=== PATIENT | female | born 1995 | race Caucasian/White ===

== ENCOUNTER 2017-11-05 00:50 | Outpatient (CLI) | payer BC, MEDICAID ==
[~2017-11-05] VITALS: Ht 165.1 cm; Wt 77.3 kg
[2017-11-05 01:32] LABS: MICROSCOPIC AUTO
[2017-11-05 01:33] VITALS: BP 124/81
== END 2017-11-05 02:50 | disposition home or self-care (01) ==
LOC: LDOP 00:50
PROVIDERS: ATTEND Student in an Organized Health Care Education/Training Program
DX: O42.90 Premature rupture of membranes, unspecified as to length of time between rupture and onset of labor, unspecified weeks of gestation (principal); O26.893 Other specified pregnancy related conditions, third trimester; M54.9 Dorsalgia, unspecified; Z3A.36 36 weeks gestation of pregnancy
CPT/HCPCS: 59025; 81001; 87086; 89060; 99201; G0463; Q0114

== ENCOUNTER 2017-11-08 15:09 | Outpatient (CLI) | payer BC, MEDICAID ==
[~2017-11-08] VITALS: Ht 165.1 cm; Wt 79.1 kg
[2017-11-08 15:13] VITALS: BP 102/68
[2017-11-08] MEDS ORDERED: PREN-3 PO (15:32)
[2017-11-08] MEDS ORDERED: ACETAMINOPHEN 325 MG TABLET ONE (16:18)
[2017-11-08 16:26] LABS: MICROSCOPIC INDICATED
[2017-11-08] MEDS ORDERED: ACETAMINOPHEN 325 MG TABLET PO PRN (16:30)
== END 2017-11-08 17:33 | disposition home or self-care (01) ==
LOC: LDOP 15:09
PROVIDERS: ATTEND Student in an Organized Health Care Education/Training Program
DX: O36.8130 Decreased fetal movements, third trimester, not applicable or unspecified (principal); Z3A.00 Weeks of gestation of pregnancy not specified
CPT/HCPCS: 59025; 81001; 87081; 87086; 87880; 99211; G0463

== ENCOUNTER 2017-11-21 19:01 | Outpatient (CLI) | payer BC, MEDICAID ==
[~2017-11-21] VITALS: Ht 165.1 cm; Wt 77.2 kg
[~2017-11-21 19:01] MED LIST: PREN-3 PO
[2017-11-21 19:59] LABS: CULTURE INDICATED? YES; MICROSCOPIC INDICATED
[2017-11-21 20:32] LABS: BASOPHILS # (AUTO) 0.05 x10^3/uL (0-0.3); BASOPHILS % (AUTO) 1 % (0-1); EOSINOPHILS % (AUTO) 1 % (1-7); LYMPHOCYTES # (AUTO) 2.28 x10^3/uL (1-6.1); LYMPHOCYTES % (AUTO) 22 % (22-44); MD NO; MEAN CORPUSCULAR HEMOGLOBIN 27.7 pg (27.0-34.8); MEAN CORPUSCULAR VOLUME 83.9 fL (80-100); MEAN PLATELET VOLUME 9.6 fL (7.4-10.4); MONOCYTES # (AUTO) 0.69 x10^3/uL (0-1.4); MONOCYTES % (AUTO) 7 % (2-9); NEUTROPHILS % (AUTO) 70 % (42-75); PLATELET COUNT 256 x10^3/uL (130-400); RED CELL DISTRIBUTION WIDTH 14.5 % (9.6-15.2)
[2017-11-21 20:43] LABS: ALANINE AMINOTRANSFERASE 15 U/L (12-78); ALBUMIN 2.3 g/dL (3.4-5.0); ANION GAP 9 mmol/L (5-15); CALCIUM 8.3 mg/dL (8.5-10.1); CHLORIDE 109 mmol/L (98-107); CREATININE 0.69 mg/dL (0.55-1.02)
[2017-11-21 20:45] LABS: ALKALINE PHOSPHATASE 136 U/L (45-117); BILIRUBIN,TOTAL 0.3 mg/dL (0.2-1.0); TOTAL PROTEIN 6.7 g/dL (6.4-8.2)
[2017-11-21 21:09] LABS: INTERNATIONAL NORMALIZED RATIO 0.92 (0.93-1.1); PROTHROMBIN TIME 9.5 Seconds (9.6-11.5)
== END 2017-11-21 21:47 | disposition home or self-care (01) ==
LOC: LDOP 19:01
PROVIDERS: ATTEND Student in an Organized Health Care Education/Training Program
DX: O36.8130 Decreased fetal movements, third trimester, not applicable or unspecified (principal); O9A.213 Injury, poisoning and certain other consequences of external causes complicating pregnancy, third trimester; Z3A.38 38 weeks gestation of pregnancy
CPT/HCPCS: 36415; 59025; 76815; 80053; 81001; 85025; 85384; 85460; 85610; 85730; 87086; 99211; G0463

== ENCOUNTER 2017-11-25 05:57 | Inpatient (IN) | payer BC, MEDICAID ==
[~2017-11-25] VITALS: Ht 165.1 cm; Wt 77.2 kg
[2017-11-25] MEDS ORDERED: OXYTOCIN 30U/ 0.9% NaCL 500ML 500 ML IV ONE (05:59)
[2017-11-25] MEDS ORDERED: FENTANYL PF 100 MCG/2ML IV PRN (06:00)
[2017-11-25] MEDS ORDERED: ONDANSETRON 2MG/ML, 2ML IVPush PRN (06:00)
[2017-11-25] MEDS ORDERED: FENTANYL PF 100 MCG/2ML IVPush PRN (06:00)
[2017-11-25] MEDS ORDERED: OXYTOCIN 30U/ 0.9% NaCL 500ML 500 ML IV PRN (06:02)
[2017-11-25 06:09] VITALS: BP 118/64
[2017-11-25 06:18] LABS: BASOPHILS # (AUTO) 0.07 x10^3/uL (0-0.3); BASOPHILS % (AUTO) 1 % (0-1); EOSINOPHILS % (AUTO) 1 % (1-7); LYMPHOCYTES # (AUTO) 2.14 x10^3/uL (1-6.1); LYMPHOCYTES % (AUTO) 24 % (22-44); MD NO; MEAN CORPUSCULAR HEMOGLOBIN 27.8 pg (27.0-34.8); MEAN CORPUSCULAR HGB CONC 33.3 g/dL (32.4-35.8); MEAN CORPUSCULAR VOLUME 83.5 fL (80-100); MEAN PLATELET VOLUME 9.5 fL (7.4-10.4); MONOCYTES # (AUTO) 0.64 x10^3/uL (0-1.4); MONOCYTES % (AUTO) 7 % (2-9); NEUTROPHILS # (AUTO) 5.89 x10^3/uL (1.8-8.0); NEUTROPHILS % (AUTO) 67 % (42-75); PLATELET COUNT 261 x10^3/uL (130-400); RED BLOOD COUNT 4.55 x10^6/uL (3.82-5.3); RED CELL DISTRIBUTION WIDTH 14.6 % (9.6-15.2)
[2017-11-25] MEDS: LACTATED RINGERS 1,000 ML IV SCH ×2 (06:24→12:35)
[2017-11-25] MEDS ORDERED: OXYTOCIN 30U/ 0.9% NaCL 500ML 500 ML ONE ×2 (06:31→15:13)
[2017-11-25] MEDS ORDERED: NEWBORN KIT ONE (07:01)
[2017-11-25] MEDS ORDERED: LACTATED RINGERS 1,000 ML IV SCH ×2 (07:24)
[2017-11-25] MEDS ORDERED: FENTANYL/BUPIV./NS/PF 250 ML EPIDCONT SCH ×2 (07:24)
[2017-11-25] MEDS ORDERED: LACTATED RINGERS 1,000 ML IVBOLUS PRN ×2 (07:30)
[2017-11-25] MEDS ORDERED: EPHEDRINE 50 MG/ML, 1ML IVPush PRN ×2 (07:30)
[2017-11-25] MEDS ORDERED: NALOXONE 0.4 MG/ML, 1ML IVPush PRN ×2 (07:30)
[2017-11-25] MEDS ORDERED: FENTANYL/BUPIV./NS/PF 250 ML EPIDCONT ONE (07:31)
[2017-11-25] MEDS ORDERED: BUPIVACAINE/PF 0.25% ONE (07:31)
[2017-11-25] MEDS: OXYTOCIN 30U/ 0.9% NaCL 500ML 500 ML IV SCH (14:06)
[2017-11-25] MEDS ORDERED: OXYcodone/APAP 5/325MG TABLET PO PRN (14:30)
[2017-11-25] MEDS ORDERED: METOCLOPRAMIDE 5 MG/ML, 2ML IV PRN (14:30)
[2017-11-25] MEDS ORDERED: ONDANSETRON 2MG/ML, 2ML IV PRN (14:30)
[2017-11-25] MEDS ORDERED: BISACODYL 10 MG SUPP PR PRN (14:30)
[2017-11-25] MEDS ORDERED: IBUPROFEN 800 MG TABLET PO PRN (14:30)
[2017-11-25] MEDS ORDERED: MISOPROSTOL 200 MCG TABLET PR PRN (14:30)
[2017-11-25] MEDS ORDERED: GLYCERIN ADULT SUPP PR PRN (14:30)
[2017-11-25] MEDS ORDERED: METHYLERGONOVINE 0.2 MG/ML IM PRN (14:30)
[2017-11-25] MEDS ORDERED: CARBOPROST TROMETHAMINE 250 MCG/ML, 1ML IM PRN (14:30)
[2017-11-25] MEDS ORDERED: ACETAMINOPHEN 325 MG TABLET PO PRN (14:30)
[2017-11-25] MEDS ORDERED: IBUPROFEN 600 MG TABLET ONE (15:13)
[2017-11-25] MEDS: IBUPROFEN 600 MG TABLET PO PRN (15:14)
[2017-11-25 17:10] VITALS: BP 110/73
[2017-11-25] MEDS: OXYcodone/APAP 5/325MG TABLET PO PRN (20:05)
[2017-11-25 20:13] VITALS: BP 113/76
[2017-11-25 21:52] LABS: BASOPHILS # (AUTO) 0.03 x10^3/uL (0-0.3); BASOPHILS % (AUTO) 0 % (0-1); EOSINOPHILS # (AUTO) 0.06 x10^3/uL (0-0.8); EOSINOPHILS % (AUTO) 1 % (1-7); LYMPHOCYTES # (AUTO) 2.09 x10^3/uL (1-6.1); LYMPHOCYTES % (AUTO) 16 % (22-44); MD NO; MEAN CORPUSCULAR HEMOGLOBIN 27.6 pg (27.0-34.8); MEAN CORPUSCULAR HGB CONC 33.2 g/dL (32.4-35.8); MEAN PLATELET VOLUME 9.8 fL (7.4-10.4); MONOCYTES # (AUTO) 0.82 x10^3/uL (0-1.4); MONOCYTES % (AUTO) 6 % (2-9); NEUTROPHILS # (AUTO) 10.07 x10^3/uL (1.8-8.0); NEUTROPHILS % (AUTO) 77 % (42-75); PLATELET COUNT 222 x10^3/uL (130-400); RED BLOOD COUNT 4.15 x10^6/uL (3.82-5.3); RED CELL DISTRIBUTION WIDTH 15.2 % (9.6-15.2)
[2017-11-26] MEDS: OXYTOCIN 30U/ 0.9% NaCL 500ML 500 ML IV SCH ×3 (00:06→20:06)
[2017-11-26 00:40] VITALS: BP 99/64
[2017-11-26] MEDS: OXYcodone/APAP 5/325MG TABLET PO PRN ×5 (01:01→23:55)
[2017-11-26] MEDS: IBUPROFEN 600 MG TABLET PO PRN ×4 (01:01→18:57)
[2017-11-26 04:40] VITALS: BP 99/64
[2017-11-26 07:35] VITALS: BP 107/74
[2017-11-26] MEDS: DOCUSATE 100 MG CAPSULE PO PRN ×2 (09:34→19:47)
[2017-11-26] MEDS: PRENATAL VIT/IRON/FA 1 EACH TABLET PO SCH (09:35)
[2017-11-26 12:30] VITALS: BP 110/76
[2017-11-26 19:45] VITALS: BP 118/66
[2017-11-27] MEDS: IBUPROFEN 600 MG TABLET PO PRN ×2 (01:21→10:39)
[2017-11-27] MEDS: OXYTOCIN 30U/ 0.9% NaCL 500ML 500 ML IV SCH (06:06)
[2017-11-27] MEDS: OXYcodone/APAP 5/325MG TABLET PO PRN ×2 (06:17→10:39)
[2017-11-27] MEDS ORDERED: OXYC-302 PO (08:03)
[2017-11-27] MEDS ORDERED: IBUP-1223 PO (08:04)
[2017-11-27] MEDS: PRENATAL VIT/IRON/FA 1 EACH TABLET PO SCH (10:39)
[2017-11-27] MEDS: DOCUSATE 100 MG CAPSULE PO PRN (10:39)
[2017-11-27 10:42] VITALS: BP 115/73
== END 2017-11-27 14:37 | disposition home or self-care (01) | DRG 775 ==
LOC: LDIP 05:57 → 2NW 16:25
PROVIDERS: ADMIT Student in an Organized Health Care Education/Training Program; ATTEND Student in an Organized Health Care Education/Training Program
PROC: 10E0XZZ Delivery of Products of Conception, External Approach (ICD-10-PCS; principal; 2017-11-25)
PROC: 10907ZC Drainage of Amniotic Fluid, Therapeutic from Products of Conception, Via Natural or Artificial Opening (ICD-10-PCS; 2017-11-25)
PROC: 0UQMXZZ Repair Vulva, External Approach (ICD-10-PCS; 2017-11-25)
PROC: 3E0R3BZ Introduction of Anesthetic Agent into Spinal Canal, Percutaneous Approach (ICD-10-PCS; 2017-11-25)
PROC: 00HU33Z Insertion of Infusion Device into Spinal Canal, Percutaneous Approach (ICD-10-PCS; 2017-11-25)
DX: O70.0 First degree perineal laceration during delivery (principal); Z37.0 Single live birth; Z3A.39 39 weeks gestation of pregnancy
CPT/HCPCS: 36415; 85025; 86850; 86870; 86900; 86922; 86923; J3490; J2590; J3010; J7120

== ENCOUNTER 2021-04-27 19:35 | Emergency (ER) | payer BC ==
[~2021-04-27] VITALS: Ht 165.1 cm; Wt 79.0 kg
[~2021-04-27 19:35] MED LIST changes: +IBUP-1223 PO; +OXYC1TAB12 PO
[2021-04-27 21:37] LABS: MICROSCOPIC AUTO
--- NOTE | 2021-04-27 21:41 | NUR ---
pt wheeled back from lobby. changed into gown.
[2021-04-27 22:07] VITALS: BP 105/65
[2021-04-27 23:00] LABS: BASOPHILS % (AUTO) 0 % (0-1); EOSINOPHILS % (AUTO) 0 % (1-7); LYMPHOCYTES % (AUTO) 20 % (22-44); MEAN CORPUSCULAR HEMOGLOBIN 31.1 pg (27.0-34.8); MEAN CORPUSCULAR HGB CONC 34.4 g/dL (32.4-35.8); MEAN PLATELET VOLUME 9.5 fL (7.4-10.4); MONOCYTES % (AUTO) 5 % (2-9); NEUTROPHILS % (AUTO) 75 % (42-75); PLATELET COUNT 244 x10^3/uL (130-400); RED BLOOD COUNT 5.31 x10^6/uL (3.82-5.3); RED CELL DISTRIBUTION WIDTH 13.5 % (9.6-15.2)
[2021-04-27 23:08] LABS: ALANINE AMINOTRANSFERASE 61 U/L (12-78); ALBUMIN 3.5 g/dL (3.4-5.0); ANION GAP 7 mmol/L (5-15); CALCIUM 8.9 mg/dL (8.5-10.1); CHLORIDE 105 mmol/L (98-107); CREATININE 0.65 mg/dL (0.55-1.02)
[2021-04-27 23:10] LABS: ALKALINE PHOSPHATASE 84 U/L (45-117); BILIRUBIN,TOTAL 0.2 mg/dL (0.2-1.0); TOTAL PROTEIN 7.2 g/dL (6.4-8.2)
== END 2021-04-28 00:10 | disposition home or self-care (01) ==
LOC: ED 23:59
DX: R10.84 Generalized abdominal pain (principal); M54.9 Dorsalgia, unspecified; R11.0 Nausea; F17.200 Nicotine dependence, unspecified, uncomplicated
CPT/HCPCS: 36415; 80053; 81001; 83690; 85025; 86850; 86900; 87086; 99283